=== PATIENT | male | born 1960 | race Caucasian/White ===

== ENCOUNTER → 2024-08-13 | Outpatient (CLI) | payer OTHER, SELFPAY ==
--- NOTE | 2024-08-13 15:08 | RAD_ITS ---
PROCEDURE: HIP, UNI W/ PELVIS 2-3 VIEWS 08/13/2024 REASON FOR EXAM: RIGHT HIP STRAIN TECHNIQUE: AP view of the pelvis, two views right hip, 3 total images COMPARISON: None available FINDINGS: No fracture or dislocation. Mild to moderate medial inferior and [id number] lateral appearing joint space narrowing right hip with mild marginal spurring, osteophyte formation. Symmetric appearing SI joints and pubic symphysis appear within limits. Status post previous hernia repair. RAD/HIP, UNI W/ Pelvis 2-3 Views IMPRESSION: Right hip osteoarthrosis with joint space narrowing appears greatest at the lat eral joint as above. Reading Location: [id number]
== END | disposition home or self-care (01) ==
LOC: RAD 14:30
PROVIDERS: PCP Family Medicine; Referring Provider Chiropractor; Visit Provider Chiropractor
DX: M16.11 Unilateral primary osteoarthritis, right hip (principal)
CPT/HCPCS: 73502